=== PATIENT | female | born 1935 | race Hispanic/Latino ===

== ENCOUNTER 2017-08-13 20:03 | Inpatient (IN) | payer MEDICARE, OTHER ==
--- NOTE | 2017-08-13 20:50 | C.PDOC ---
History Of Present Illness 82 year old female is brought to the ED by her daughter for evaluation of pain to the left hip and thigh. 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 Patient states she was not able to get up by herself and needed help from another person. Patient denies LOC, headache, head injury, nausea, vomit, dizziness, weakness, numbness. Time Seen by Provider: 08/13/17 20:43 Chief Complaint (Nursing): Lower Extremity Problem/Injury History Per: Patient History/Exam Limitations: no limitations Onset/Duration Of Symptoms: Hrs Current Symptoms Are (Timing): Still Present Recent travel outside of the [place]: No Additional History Per: Patient - Hip Description Of Injury: Fell, Lost Balance Currently Unable To: Bend Or Move Past Medical History Reviewed: Historical Data, Nursing Documentation, Vital Signs Vital Signs: Last Vital Signs Temp 98.8 F 08/13/17 20:22 Pulse 74 08/13/17 20:22 Resp 20 08/13/17 20:22 BP 137/78 08/13/17 20:22 Pulse Ox 98 08/13/17 21:34 - Medical History PMH: Arthritis, HTN Surgical History: No Surg Hx Family History: States: Unknown Family Hx - Social History Hx Alcohol Use: No Hx Substance Use: No - Immunization History Hx Tetanus Toxoid Vaccination: No Hx Influenza Vaccination: Yes Hx Pneumococcal Vaccination: No Review Of Systems Constitutional: Negative for: Fever, Chills Cardiovascular: Negative for: Chest Pain Respiratory: Negative for: Shortness of Breath Gastrointestinal: Negative for: Nausea, Vomiting, Abdominal Pain Musculoskeletal: Positive for: Leg Pain Skin: Negative for: Rash Neurological: Negative for: Weakness, Numbness Physical Exam - Physical Exam Appears: Non-toxic, No Acute Distress Skin: Normal Color, Warm, Dry Head: Atraumatic, Normacephalic Eye(s): bilateral: Normal Inspection Oral Mucosa: Moist Neck: Normal ROM, Supple Chest: Symmetrical Cardiovascular: Rhythm Regular Respiratory: Normal Breath Sounds, No Rales, No Rhonchi, No Wheezing Back: No Paraspinal Tenderness Pelvic: Other (tenderness to left inguinal area) Extremity: No Normal ROM (unable to lift or move left hip or leg due to pain), Tenderness (left medial thigh and inner groin), No Calf Tenderness, Capillary Refill (< 2 seconds), No Deformity, No Swelling Pulses: Left Dorsalis Pedis: Normal, Right Dorsalis Pedis: Normal Neurological/Psych: Oriented x3, Normal Speech, Normal Sensation Gait: Unable To Assess ED Course And Treatment O2 Sat by Pulse Oximetry: 98 (ON RA) Pulse Ox Interpretation: Normal Medical Decision Making Medical Decision Making: Impression: left hip pain s.p fall Plan: * Tylenol 975 mg PO * Left hip X-Ray Xray viewed by me showing impacted femoral neck fracture left side. [id number]rera requested CT of hip, Matilda GARCIA [address] Nagel to discuss case and admission. Orders placed for labs, CT, IV meds Disposition - Disposition Disposition: HOSPITALIZED Disposition Time: 21:41 Condition: STABLE - POA Present On Arrival: Falls Or Trauma - Clinical Impression Clinical Impression: Fracture of neck of left femur - PA / RAIL SETTER / Resident Statement MD/DO has reviewed & agrees with the documentation as recorded. - Scribe Statement The provider has reviewed the documentation as recorded by the Scribe Elijah Andre All medical record entries made by the Scribe were at my direction and personally dictated by me. I have reviewed the chart and agree that the record accurately reflects my personal performance of the history, physical exam, medical decision making, and the department course for this patient. I have also personally directed, reviewed, and agree with the discharge instructions and disposition. Decision To Admit - Pt Status Changed To: Hospital Disposition Of: Inpatient - Admit Certification Admit to Inpatient:: After my assessment, the patient will require hospitalization for at least two midnights. This is because of the severity of symptoms shown, intensity of services needed, and/or the medical risk in this patient being treated as an outpatient. - InPatient: Physician Admission Certification: I certify that this patient requires 2 or more midnights of care for the following reason:: After my assessment, the patient will require hospitalization for at least two midnights. This is because of the severity of fracture, the patient is unable to walk will require surgical consult surgery, physical therapy and social intervention - . Bed Request Type: Regular Admitting Physician: Frank Nagel Patient Diagnosis: Fracture of neck of left femur
[2017-08-13 21:53] LABS: BASO % 0.3 % (0.0-2.0); EOS % 0.2 % (0.0-4.0); HEMOGLOBIN 12.3 g/dL (11.0-16.0); LYMPH # 0.9 K/uL (1.0-4.3); LYMPH % 7.8 % (20.0-40.0); MEAN CELL VOLUME 92.4 fL (81.0-99.0); MEAN CORPUSCULAR HEMOGLOBIN 31.4 pg (27.0-31.0); MEAN CORPUSCULAR HGB CONC 33.9 g/dL (33.0-37.0); MONO # 0.6 K/uL (0.0-0.8); MONO % 5.1 % (0.0-10.0); NEUT # 9.5 K/uL (1.8-7.0); NEUT % 86.6 % (50.0-75.0); PLATELET COUNT 178 K/uL (130-400); RBC 3.92 Mil/uL (3.80-5.20); RED CELL DISTRIBUTION WIDTH 13.4 % (11.5-14.5)
[2017-08-13 21:59] LABS: PROTHROMBIN TIME 11.2 SECONDS (9.7-12.2)
[2017-08-13 22:06] LABS: ALB/GLOB RATIO 1.4 (1.0-2.1); ALBUMIN 4.6 g/dL (3.5-5.0); ALT/SGPT 50 U/L (9-52); AST/SGOT 45 U/L (14-36); BLOOD UREA NITROGEN 18 mg/dL (7-17); CALCIUM 9.4 mg/dl (8.6-10.4); GFR AFRICAN-AMERICAN > 60; GFR NON-AFRICAN AMERICAN > 60
[2017-08-13 22:26] LABS: BANDS 2 % (0-2); EOSINOPHIL 1 % (0-4); LYMPHOCYTE 2 % (20-40); MONOCYTE 3 % (0-10); NEUTROPHIL 92 % (50-75); PLATELET ESTIMATE NORMAL (NORMAL); TOTAL CELLS COUNTED 100
[2017-08-13 22:31] LABS: URINE BACTERIA RARE (<OCC); URINE BILIRUBIN NEGATIVE (NEGATIVE); URINE BLOOD 2+ (NEGATIVE); URINE CLARITY Hazy (Clear); URINE COLOR Yellow (YELLOW); URINE GLUCOSE (UA) 1+ mg/dL (Normal); URINE LEUKOCYTE ESTERASE TRACE Leu/uL (Negative); URINE PROTEIN NEGATIVE (NEGATIVE); URINE UROBILINOGEN NORMAL mg/dL (0.2-1.0)
[2017-08-14] MEDS ORDERED: Morphine 4 MG/ML VIAL IV ONE (04:50)
--- NOTE | 2017-08-14 09:44 | CT ---
CT left hip History: Femoral neck fracture. Comparison: 08/13/2017 Technique: Multiple contiguous axial images were performed through the left hip without the use of intravenous contrast. Subsequently, sagittal and coronal reformatted images were obtained. This CT exam was performed using one or more of the following dose reduction techniques: Automated exposure control, adjustment of the mA and/or kV according to patient size, and/or use of iterative reconstruction technique. Findings: Acute fracture deformity of the left subcapital femoral neck. Femoral head appears located. Cortical irregularity at the level of the circumferential cortices. Degenerative changes at the pubic symphysis. At the level of the pubic symphysis posteriorly there is a rounded ossific density measuring 1.1 centimeters which may represent heterotopic bone. Impression: Acute fracture deformity of the left subcapital femoral neck at the head neck junction. These findings were preliminarily reported at 10:25 p.m. on 08/13/[address] Gurpreet Garber from [facility].
--- NOTE | 2017-08-14 10:32 | CP.PCM.PN ---
Subjective - Date & Time of Evaluation Date of Evaluation: 08/14/17 Time of Evaluation: 10:43 - Subjective Subjective: Patient examined discussed with PMd stable HTn,DM medically clear for surgery. Objective - Vital Signs/Intake and Output Vital Signs (last 24 hours): Temp Pulse Resp BP Pulse Ox 99.2 F 74 18 132/65 96 08/14/17 07:10 08/14/17 07:10 08/14/17 07:10 08/14/17 07:10 08/14/17 07:10 Intake and Output: 08/14/17 08/14/17 06:59 18:59 Intake Total 130 Output Total 1500 Balance -1370 - Medications Medications: Current Medications Potassium Chloride (Potassium Chloride 20 Meq/100 Ml) 20 meq in 100 mls @ 50 mls/hr IVPB ONCE ONE Stop: 08/14/17 11:07 Last Admin: 08/14/17 09:24 Dose: 50 mls/hr Pneumococcal Polyvalent Vaccine (Pneumovax 23 Vaccine) 0.5 ml IM .ONCE ONE Stop: 08/16/17 14:01 - Labs Labs: 08/13/17 21:46 08/13/17 21:46 PT 11.2 SECONDS (9.7-12.2) 08/13/17 21:46 INR 1.0 08/13/17 21:46 APTT 28 SECONDS (21-34) 08/13/17 21:46
--- NOTE | 2017-08-14 12:06 | RAD ---
Chest x-ray single frontal view History: Preoperative evaluation. Comparison: None available. Findings: Biapical pleural thickening with upper lobe granulomatous changes. Diffuse increased interstitial markings. Patchy increased markings at the left lung base. Enlarged ectatic aorta. Mild cardiomegaly. Degenerative changes spine and shoulders. Impression: Biapical pleural thickening with upper lobe granulomatous changes. Diffuse increased interstitial markings. Patchy increased markings at the left lung base. Enlarged ectatic aorta. Mild cardiomegaly.
--- NOTE | 2017-08-14 12:56 | RAD ---
PROCEDURE: Left Hip X-ray Radiographs. HISTORY: PAIN S.P FALL COMPARISON: None. FINDINGS: BONES: The pelvic ring is intact. There is diffuse bone demineralization. There is an acute nondisplaced mildly impacted left femoral subcapital fracture JOINTS: Normal. SOFT TISSUES: Normal. OTHER FINDINGS: None. IMPRESSION: Acute nondisplaced mildly impacted left femoral subcapital fracture. Important findings were discussed with the PA on 08/14/2017 at 12:54 p.m.. At this time the patient was already admitted with known left femoral fracture.
[2017-08-14] MEDS ORDERED: ceFAZolin IV 1 gm in Dextrose 2 GM/100 ML BAG IVPB ONE (13:03)
[2017-08-14] MEDS ORDERED: Etomidate 20 mg/10ml Inj IV ONE (13:14)
[2017-08-14] MEDS ORDERED: Succinylcholine Chloride 20 mg/ml Syr (5 ml) IV ONE (13:14)
--- NOTE | 2017-08-14 13:16 | CP.PCM.PN ---
Subjective - Date & Time of Evaluation Date of Evaluation: 08/14/17 Time of Evaluation: 09:45 - Subjective Subjective: PGY 3 Med Note- Dr. Nagel's service CC: hip pain 82 year old female with past medical history significant for HTN, diabetes and arthritis presents after falling while at work yesterday. 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 One day prior, the son of a customer accidentally fell onto the patient whereby she lost her footing and fell. She denies hitting her head. Patient states that she was in pain immediately afterwards requiring assistance. Patient admits to discomfort with movement of the affected left hip. Patient currently denies subjective fevers or chills, chest pain, headaches, loss of consciousness, palpitations, nausea, vomiting, diarrhea or constipation at this time. PMHx as stated above PSHX- denies Fam Hx- Patient denies Medications- Metformin, Amlodipine, ASA 81 mg, allergy medication Social- tobacco, alcohol or drug use Allergies-denies PMD- Dr. Farheen Nagel Objective - Vital Signs/Intake and Output Vital Signs (last 24 hours): Temp Pulse Resp BP Pulse Ox 99.2 F 74 18 132/65 96 08/14/17 07:10 08/14/17 07:10 08/14/17 07:10 08/14/17 07:10 08/14/17 07:10 Intake and Output: 08/14/17 08/14/17 06:59 18:59 Intake Total 130 Output Total 1500 300 Balance -1370 -300 - Medications Medications: Current Medications Pneumococcal Polyvalent Vaccine (Pneumovax 23 Vaccine) 0.5 ml IM .ONCE ONE Stop: 08/16/17 14:01 - Labs Labs: 08/13/17 21:46 08/13/17 21:46 PT 11.2 SECONDS (9.7-12.2) 08/13/17 21:46 INR 1.0 08/13/17 21:46 APTT 28 SECONDS (21-34) 08/13/17 21:46 - Constitutional Appears: Non-toxic, No Acute Distress - Head Exam Head Exam: ATRAUMATIC, NORMAL INSPECTION - Eye Exam Eye Exam: EOMI, Normal appearance - ENT Exam ENT Exam: Mucous Membranes Moist - Neck Exam Neck Exam: Full ROM - Respiratory Exam Respiratory Exam: NORMAL BREATHING PATTERN - Cardiovascular Exam Cardiovascular Exam: +S1, +S2, Murmur (systolic) - GI/Abdominal Exam GI & Abdominal Exam: Soft - Exam Exam: NORMAL INSPECTION - Extremities Exam Extremities Exam: Normal Capillary Refill, Tenderness (tender hip). absent: Full ROM (decreased range of motion of left hip), Pedal Edema - Neurological Exam Neurological Exam: Alert, Awake - Psychiatric Exam Psychiatric exam: Normal Affect, Normal Mood - Skin Skin Exam: Normal Color, Warm Assessment and Plan (1) Fracture of neck of left femur Assessment & Plan: XRAY and CT imaging confirms fracture of the neck of the left femur. Some degenerative changes noted. Refer to complete report. CXR- Biapical pleural thickening with upper lobe granulomatous changes. Diffuse interstitial markings. Refer to complete report. EKG- sinus rhythm, pr prolongation, questionable bundle branch changes. Orthopedic Surgeon Dr. Frederick Chadwick consulted- For the OR today. Patient with no otherwise known cardiac history except HTN and DM. Deemed medically clear by covering attending physician after speaking with patient's primary medical physician. PT/OT eval Status: Acute (2) HTN (hypertension) Assessment & Plan: Norvasc 5 mg PO daily Appropriate pain control Monitor Status: Acute (3) Diabetes mellitus Assessment & Plan: Accuchecks ISS Last Hgb A1c was 6.7 per primary Status: Acute (4) Hypokalemia Assessment & Plan: Repleted Monitor Status: Acute (5) Prophylactic measure Assessment & Plan: GI prophylaxis not indicated Incentive spirometry Lovenox following surgery per ortho recommendations Status: Acute
[2017-08-14] MEDS ORDERED: Rocuronium 10 mg/ml (5 ml) ONE (13:29)
[2017-08-14] MEDS ORDERED: Neostigmine Methylsulfate 3mg/3ml Syringe IV ONE (14:19)
--- NOTE | 2017-08-14 15:45 | PCM.SURG1 ---
<Grecia You - Last Filed: 08/14/17 15:42> Surgeon's Initial Post Op Note - Surgeon's Notes Surgeon: Dr. Herrera Roller Stainer: Dr. Марина Pierre Type of Anesthesia: General Endo Anesthesia Administered By: Dr. Cash Pre-Operative Diagnosis: Left hip fracture Operative Findings: Internal fixation Post-Operative Diagnosis: same Operation Performed: Left hip open reduction and internal fixation Specimen/Specimens Removed: none Estimated Blood Loss: EBL {In ML}: 15 Blood Products Given: N/A Drains Used: No Drains Post-Op Condition: Good Date of Surgery/Procedure: 08/14/17 Time of Surgery/Procedure: 14:00 <Nelida Herrera - Last Filed: 08/17/17 12:19> Surgeon's Initial Post Op Note - Surgeon's Notes Pre-Operative Diagnosis: Left hip displaced impacted subcapital femoral neck fracture Operative Findings: Left hip displaced impacted subcapital femoral neck fracture Post-Operative Diagnosis: Left hip displaced impacted subcapital femoral neck fracture Operation Performed: Left hip femoral neck fracture closed reduction and internal fixation with 3 screws Specimen/Specimens Removed: specimen= none. complications= none. implants= Synthes 7.3mm screws x3 (85mm fully threaded - inferior, 80mm partially threaded - superior ant/superior post lengths) and washers
[2017-08-14] MEDS ORDERED: HYDROmorphone 0.5 mg/0.5 ml ISec IVP PRN (15:46)
[2017-08-14] MEDS ORDERED: HYDROmorphone 0.5 mg/0.5 ml ISec ONE (15:46)
[2017-08-14] MEDS ORDERED: Lactated Ringer's 1,000 ML IV ONE (16:30)
--- NOTE | 2017-08-14 17:49 | RAD ---
PROCEDURE: Intraoperative Fluoroscopy. HISTORY: LEFT HIP FX FINDINGS: Fluoroscopic assistance was provided for open reduction internal fixation of a left hip fracture. Please refer to the operative report from SAVANNA Win DR, MD.
[2017-08-14] MEDS: Oxycodone/Acetaminophen 5/325 mg Tab PO PRN ×2 (17:50→21:52)
[2017-08-14] MEDS: CEFAZOLIN IVPB SCH (21:51)
[2017-08-14] MEDS: SODIUM CHLORIDE 0.9% IVPB SCH (21:51)
[2017-08-15] MEDS: SODIUM CHLORIDE 0.9% IVPB SCH (05:24)
[2017-08-15] MEDS: CEFAZOLIN IVPB SCH (05:24)
[2017-08-15 06:41] LABS: BASO % 0.6 % (0.0-2.0); EOS # 0.1 K/uL (0.0-0.7); EOS % 1.6 % (0.0-4.0); LYMPH # 1.5 K/uL (1.0-4.3); LYMPH % 19.1 % (20.0-40.0); MEAN CELL VOLUME 93.7 fL (81.0-99.0); MEAN CORPUSCULAR HEMOGLOBIN 31.9 pg (27.0-31.0); MONO # 0.5 K/uL (0.0-0.8); NEUT # 5.6 K/uL (1.8-7.0); NEUT % 72.7 % (50.0-75.0); RBC 2.99 Mil/uL (3.80-5.20); RED CELL DISTRIBUTION WIDTH 13.8 % (11.5-14.5); WHITE BLOOD COUNT 7.7 K/uL (4.8-10.8)
[2017-08-15 06:56] LABS: HEMOGLOBIN 9.5 g/dL (11.0-16.0)
[2017-08-15 07:29] LABS: ALB/GLOB RATIO 1.2 (1.0-2.1); ALT/SGPT 37 U/L (9-52); AST/SGOT 33 U/L (14-36); BLOOD UREA NITROGEN 9 mg/dL (7-17); CALCIUM 7.9 mg/dl (8.6-10.4); GFR AFRICAN-AMERICAN > 60; GFR NON-AFRICAN AMERICAN > 60
--- NOTE | 2017-08-15 07:34 | CP.PCM.PN ---
Subjective - Date & Time of Evaluation Date of Evaluation: 08/15/17 Time of Evaluation: 08:00 - Subjective Subjective: PGY 3 Med Note- Dr. Nagel's service Patient was seen and examined at bedside this morning. She is s/p Left hip open reduction and internal fixation. Pain is controlled with medications. Had mild fever overnight. Tolerating diet. No flatus or bowel movement yet. She is using her incentive spirometer. No new complaints at this time. Objective - Vital Signs/Intake and Output Vital Signs (last 24 hours): Temp Pulse Resp BP Pulse Ox 100.2 F H 78 20 103/60 95 08/15/17 04:15 08/15/17 04:15 08/15/17 04:15 08/15/17 04:15 08/15/17 04:20 Intake and Output: 08/15/17 08/15/17 06:59 18:59 Intake Total 330 Output Total 850 Balance -520 - Medications Medications: Current Medications Acetaminophen (Tylenol 325mg Tab) 650 mg PO Q6 PRN PRN Reason: Pain, Mild (1-3) Last Admin: 08/15/17 00:39 Dose: 650 mg Amlodipine Besylate (Norvasc) 5 mg PO DAILY [facility] Last Admin: 08/14/17 18:02 Dose: 5 mg Enoxaparin Sodium (Lovenox) 40 mg SC DAILY [facility] Cefazolin Sodium 1 mg/ Sodium (Chloride) 100 mls @ 100 mls/hr IVPB Q8H [facility] PRN Reason: Protocol Last Admin: 08/15/17 05:24 Dose: 100 mls/hr Oxycodone/Acetaminophen (Percocet 5/325 Mg Tab) 1 tab PO Q4H PRN PRN Reason: Pain, moderate (4-7) Stop: 08/17/17 16:09 Oxycodone/Acetaminophen (Percocet 5/325 Mg Tab) 2 tab PO Q4H PRN PRN Reason: Pain, severe (8-10) Stop: 08/17/17 16:09 Last Admin: 08/14/17 21:52 Dose: 2 tab Pneumococcal Polyvalent Vaccine (Pneumovax 23 Vaccine) 0.5 ml IM .ONCE ONE Stop: 08/16/17 14:01 - Labs Labs: 08/15/17 06:34 08/15/17 06:34 PT 11.2 SECONDS (9.7-12.2) 08/13/17 21:46 INR 1.0 08/13/17 21:46 APTT 28 SECONDS (21-34) 08/13/17 21:46 - Constitutional Appears: Non-toxic, No Acute Distress - Head Exam Head Exam: ATRAUMATIC, NORMAL INSPECTION - Eye Exam Eye Exam: EOMI - ENT Exam ENT Exam: Mucous Membranes Moist - Neck Exam Neck Exam: Full ROM - Respiratory Exam Respiratory Exam: Clear to Ausculation Bilateral, NORMAL BREATHING PATTERN. absent: Respiratory Distress - Cardiovascular Exam Cardiovascular Exam: REGULAR RHYTHM, +S1, +S2, Murmur - GI/Abdominal Exam GI & Abdominal Exam: Soft, Normal Bowel Sounds. absent: Distended, Firm, Guarding, Tenderness - Extremities Exam Extremities Exam: Normal Inspection Additional comments: Bandages in place over hip/leg. Patient is able to move toes, warm to touch - Back Exam Back Exam: NORMAL INSPECTION - Neurological Exam Neurological Exam: Alert, Awake, Oriented x3 - Psychiatric Exam Psychiatric exam: Normal Affect, Normal Mood Assessment and Plan - Assessment and Plan (Free Text) Assessment: Fracture of neck of left femur s/p Left hip open reduction and internal fixation POD #1 (surgery on 08/14/17) XRAY and CT imaging confirms fracture of the neck of the left femur. Some degenerative changes noted. Refer to complete report. CXR- Biapical pleural thickening with upper lobe granulomatous changes. Diffuse interstitial markings. Refer to complete report. EKG- sinus rhythm, pr prolongation, questionable bundle branch changes. Orthopedic Surgeon Dr. Frederick Chadwick consulted- For the OR today. Patient with no otherwise known cardiac history except HTN and DM. Deemed medically clear by covering attending physician after speaking with patient's primary medical physician. PT/OT eval Cefazolin 1mg IVPB Q8 hours Percocet 5/325 1 tab PO Q4 hours prn pain (2 tabs prn severe pain) Mild fevers overnight No BM/flatus yet Incentive spirometer Hgb post surgery 9.5 Ferrous Sulfat 325mg PO daily HTN (hypertension) Norvasc 5 mg PO daily - am dose held due to BP being on lower side Given 500mls of NS Appropriate pain control Monitor Diabetes mellitus Accuchecks ISS Last Hgb A1c was 6.7 per primary Hypokalemia K 3.2, Mg 1.6 Repleted Monitor Prophylactic measure GI prophylaxis not indicated Incentive spirometry Lovenox 40mg SC daily Grey discontinued - will monitor for urine output Out of bed to chair PT eval Dispo -> pending rehab authorization/placement and clearance from orthopedics. Patient would like to go to [facility] as she has as family member that works there All orders and management per Dr. Robe Rabago DO PGY3
[2017-08-15 07:40] LABS: ALBUMIN 3.2 g/dL (3.5-5.0)
[2017-08-15] MEDS ORDERED: Potassium Chloride 20 mEq ER Tab PO STA (07:48)
[2017-08-15] MEDS ORDERED: Magnesium Sulfate 1 gm in D5W 1 GM/100 ML BAG IVPB SCH (08:00)
[2017-08-15] MEDS ORDERED: Sodium Chloride 0.9% 500 ML IV ONE (09:01)
--- NOTE | 2017-08-15 09:39 | HP ---
HISTORY OF PRESENT ILLNESS: This is an 82-year-old female admitted to the hospital with chief complaint of fall. The patient was found to have hip fracture, arthritis. Patient has hypertension, diabetes. . The patient does not smoke or drink. PHYSICAL EXAMINATION GENERAL: The patient is a very pleasant elderly female. Awake, alert, and oriented. VITAL SIGNS: Temperature 98, pulse 90. HEENT: Within normal limits. NECK: Supple. CHEST: Symmetrical. HEART: Regular. ABDOMEN: Soft. EXTREMITIES: No edema ____ IMPRESSION: The patient suffered from hip fracture, hypertension stable, diabetes stable. The patient . Frank Nagel MD
[2017-08-15] MEDS ORDERED: Potassium Chloride 20 mEq ER Tab PO ONE (10:00)
[2017-08-15] MEDS: Enoxaparin 40 mg Syringe SC SCH (10:32)
[2017-08-15] MEDS: Oxycodone/Acetaminophen 5/325 mg Tab PO PRN ×3 (11:18→20:38)
[2017-08-15] MEDS: Sodium Chloride 0.9% 1,000 ML IV SCH ×2 (12:35→20:34)
[2017-08-15] MEDS: ceFAZolin 1 GM in Sodium Chloride 0.9% 100 ML IVPB SCH ×2 (12:35→20:40)
--- NOTE | 2017-08-15 15:26 | CP.PCM.PN ---
Subjective - Date & Time of Evaluation Date of Evaluation: 08/15/17 Time of Evaluation: 15:24 - Subjective Subjective: Patient states pain is controlled. Denies CP/SOB?dizziness. She says her BP went down during PT so she did not get out of bed, but denies dizziness even at that time. Objective - Vital Signs/Intake and Output Vital Signs (last 24 hours): Temp Pulse Resp BP Pulse Ox 98.9 F 78 20 106/69 95 08/15/17 10:31 08/15/17 11:15 08/15/17 11:15 08/15/17 11:15 08/15/17 11:15 Intake and Output: 08/15/17 08/15/17 06:59 18:59 Intake Total 330 Output Total 850 Balance -520 - Medications Medications: Current Medications Acetaminophen (Tylenol 325mg Tab) 650 mg PO Q6 PRN PRN Reason: Pain, Mild (1-3) Last Admin: 08/15/17 00:39 Dose: 650 mg Amlodipine Besylate (Norvasc) 5 mg PO DAILY [facility] Last Admin: 08/15/17 09:30 Dose: Not Given Enoxaparin Sodium (Lovenox) 40 mg SC DAILY [facility] Last Admin: 08/15/17 10:32 Dose: 40 mg Ferrous Sulfate (Feosol) 325 mg PO DAILY [facility] Last Admin: 08/15/17 11:18 Dose: 325 mg Cefazolin Sodium 1 gm/ Sodium (Chloride) 100 mls @ 200 mls/hr IVPB Q8H [facility] PRN Reason: Protocol Stop: 08/16/17 05:29 Last Admin: 08/15/17 12:35 Dose: 200 mls/hr Sodium Chloride (Sodium Chloride 0.9%) 1,000 mls @ 75 mls/hr IV .[id number] [facility] Last Admin: 08/15/17 12:35 Dose: 75 mls/hr Oxycodone/Acetaminophen (Percocet 5/325 Mg Tab) 1 tab PO Q4H PRN PRN Reason: Pain, moderate (4-7) Stop: 08/17/17 16:09 Last Admin: 08/15/17 11:18 Dose: 1 tab Oxycodone/Acetaminophen (Percocet 5/325 Mg Tab) 2 tab PO Q4H PRN PRN Reason: Pain, severe (8-10) Stop: 08/17/17 16:09 Last Admin: 08/14/17 21:52 Dose: 2 tab Pneumococcal Polyvalent Vaccine (Pneumovax 23 Vaccine) 0.5 ml IM .ONCE ONE Stop: 08/16/17 14:01 - Labs Labs: 08/15/17 06:34 08/15/17 06:34 PT 11.2 SECONDS (9.7-12.2) 08/13/17 21:46 INR 1.0 08/13/17 21:46 APTT 28 SECONDS (21-34) 08/13/17 21:46 - Extremities Exam Additional comments: Left hip: incision intact, thigh mld swelling, +ROM ankle/toes, sensation intact , +DP/PT pulses, no drainage noted Assessment and Plan (1) Fracture of neck of left femur Assessment & Plan: POD# s/p left hip pinning PT/oT IVF labs in am check Vit D d/c planning to [facility] VTE proph d/w Dr. Duenas, agrees with above Status: Acute
--- NOTE | 2017-08-15 15:38 | RAD ---
Chest x-ray single frontal view History: Desaturation. Comparison: 08/13/2017 Findings: Biapical pleural thickening with upper lobe granulomatous changes. Blunted left costophrenic angle suggestive for pleural thickening and/or small pleural effusion. Consolidative changes at the left lung base. Right hilar prominence. Enlarged ectatic aorta. Calcification at the aortic knob. Cardiomegaly. Degenerative changes in the spine and shoulders. Impression: Biapical pleural thickening with upper lobe granulomatous changes. Blunted left costophrenic angle suggestive for pleural thickening and/or small pleural effusion. Consolidative changes at the left lung base. Right hilar prominence. Enlarged ectatic aorta. Calcification at the aortic knob. Cardiomegaly.
[2017-08-16] MEDS: Sodium Chloride 0.9% 1,000 ML IV SCH ×3 (01:50→22:54)
[2017-08-16] MEDS: ceFAZolin 1 GM in Sodium Chloride 0.9% 100 ML IVPB SCH (05:43)
[2017-08-16 06:42] LABS: BASO % 0.4 % (0.0-2.0); EOS # 0.1 K/uL (0.0-0.7); EOS % 1.5 % (0.0-4.0); HEMOGLOBIN 9.2 g/dL (11.0-16.0); LYMPH # 1.3 K/uL (1.0-4.3); MEAN CELL VOLUME 93.4 fL (81.0-99.0); MEAN CORPUSCULAR HEMOGLOBIN 31.8 pg (27.0-31.0); MEAN PLATELET VOLUME 7.8 fL (7.2-11.7); MONO # 0.5 K/uL (0.0-0.8); MONO % 7.7 % (0.0-10.0); NEUT # 4.5 K/uL (1.8-7.0); NEUT % 70.4 % (50.0-75.0); RBC 2.9 Mil/uL (3.80-5.20); RED CELL DISTRIBUTION WIDTH 13.7 % (11.5-14.5); WHITE BLOOD COUNT 6.4 K/uL (4.8-10.8)
[2017-08-16 06:59] LABS: ALB/GLOB RATIO 1.1 (1.0-2.1); ALBUMIN 3.1 g/dL (3.5-5.0); ALT/SGPT 30 U/L (9-52); AST/SGOT 25 U/L (14-36); BLOOD UREA NITROGEN 6 mg/dL (7-17); CALCIUM 7.8 mg/dl (8.6-10.4); GFR AFRICAN-AMERICAN > 60; GFR NON-AFRICAN AMERICAN > 60
--- NOTE | 2017-08-16 07:17 | CP.PCM.PN ---
Subjective - Date & Time of Evaluation Date of Evaluation: 08/16/17 Time of Evaluation: 08:00 - Subjective Subjective: PGY 3 Med Note- Dr. Nagel's service Patient was seen and examined at bedside this morning. She is s/p Left hip open reduction and internal fixation POD #2. Pain is controlled with medications. Had mild fever overnight. Tolerating diet. Had BM and is urinating. She is using her incentive spirometer. No new complaints at this time. Was sitting out of bed to chair. Objective - Vital Signs/Intake and Output Vital Signs (last 24 hours): Temp Pulse Resp BP Pulse Ox 99.2 F 84 20 126/63 97 08/16/17 04:15 08/15/17 23:30 08/15/17 23:30 08/15/17 23:30 08/15/17 23:30 Intake and Output: 08/16/17 08/16/17 06:59 18:59 Intake Total 600 Output Total 100 Balance 500 - Medications Medications: Current Medications Acetaminophen (Tylenol 325mg Tab) 650 mg PO Q6 PRN PRN Reason: Pain, Mild (1-3) Last Admin: 08/16/17 00:09 Dose: 650 mg Amlodipine Besylate (Norvasc) 5 mg PO DAILY [facility] Last Admin: 08/15/17 09:30 Dose: Not Given Enoxaparin Sodium (Lovenox) 40 mg SC DAILY [facility] Last Admin: 08/15/17 10:32 Dose: 40 mg Ferrous Sulfate (Feosol) 325 mg PO DAILY [facility] Last Admin: 08/15/17 11:18 Dose: 325 mg Sodium Chloride (Sodium Chloride 0.9%) 1,000 mls @ 75 mls/hr IV .[id number] [facility] Last Admin: 08/16/17 01:50 Dose: Not Given Oxycodone/Acetaminophen (Percocet 5/325 Mg Tab) 1 tab PO Q4H PRN PRN Reason: Pain, moderate (4-7) Stop: 08/17/17 16:09 Last Admin: 08/15/17 11:18 Dose: 1 tab Oxycodone/Acetaminophen (Percocet 5/325 Mg Tab) 2 tab PO Q4H PRN PRN Reason: Pain, severe (8-10) Stop: 08/17/17 16:09 Last Admin: 08/15/17 20:38 Dose: 2 tab Pneumococcal Polyvalent Vaccine (Pneumovax 23 Vaccine) 0.5 ml IM .ONCE ONE Stop: 08/16/17 14:01 - Labs Labs: 08/16/17 06:34 08/16/17 06:34 PT 11.2 SECONDS (9.7-12.2) 08/13/17 21:46 INR 1.0 08/13/17 21:46 APTT 28 SECONDS (21-34) 08/13/17 21:46 - Constitutional Appears: Non-toxic, No Acute Distress - Head Exam Head Exam: ATRAUMATIC, NORMAL INSPECTION - Eye Exam Eye Exam: EOMI Pupil Exam: NORMAL ACCOMODATION - ENT Exam ENT Exam: Mucous Membranes Moist - Respiratory Exam Respiratory Exam: Clear to Ausculation Bilateral, Respiratory Distress - Cardiovascular Exam Cardiovascular Exam: REGULAR RHYTHM, +S1, +S2 - GI/Abdominal Exam GI & Abdominal Exam: Soft, Normal Bowel Sounds. absent: Distended, Firm, Guarding, Tenderness - Extremities Exam Extremities Exam: Normal Inspection Additional comments: Bandages in place over hip/leg. Patient is able to move toes, warm to touch - Back Exam Back Exam: NORMAL INSPECTION - Neurological Exam Neurological Exam: Alert, Awake, CN II-XII Intact, Oriented x3 - Psychiatric Exam Psychiatric exam: Normal Affect, Normal Mood Assessment and Plan - Assessment and Plan (Free Text) Assessment: Fracture of neck of left femur s/p Left hip open reduction and internal fixation POD #2 (surgery on 08/14/17) XRAY and CT imaging confirms fracture of the neck of the left femur. Some degenerative changes noted. Refer to complete report. CXR- Biapical pleural thickening with upper lobe granulomatous changes. Diffuse interstitial markings. Refer to complete report. EKG- sinus rhythm, pr prolongation, questionable bundle branch changes. Orthopedic Surgeon Dr. Frederick Chadwick consulted- For the OR today. Patient with no otherwise known cardiac history except HTN and DM. Deemed medically clear by covering attending physician after speaking with patient's primary medical physician. PT/OT eval Cefazolin 1mg IVPB Q8 hours Percocet 5/325 1 tab PO Q4 hours prn pain (2 tabs prn severe pain) Mild fevers overnight Incentive spirometer Hgb post surgery 9.5 Ferrous Sulfat 325mg PO daily Post Op fever Tmax 101.8 overnight Chest X ray - no evidence of pneumonia Had 3 doses of IV Ancef f/u UA, urine culture, blood culture HTN (hypertension) Norvasc 5 mg PO daily - am dose held due to BP being on lower side Given 500mls of NS Appropriate pain control Monitor Diabetes mellitus Accuchecks ISS Last Hgb A1c was 6.7 per primary hold home metformin dose Hypokalemia K 3.4, replaced Vitamin D deficiency Patient to take 2000 IU of Vit D daily otc Prophylactic measure GI prophylaxis not indicated Incentive spirometry Lovenox 40mg SC daily Out of bed to chair PT eval Dispo -> pending rehab authorization/placement and clearance from orthopedics. [place] [facility] she has as family member that works there All orders and management per Dr. Robe Rabago DO PGY3
[2017-08-16] MEDS ORDERED: Potassium Chloride 20 mEq ER Tab PO STA (07:19)
[2017-08-16] MEDS: Enoxaparin 40 mg Syringe SC SCH (09:10)
[2017-08-16] MEDS: Oxycodone/Acetaminophen 5/325 mg Tab PO PRN ×4 (09:15→22:57)
[2017-08-16] MEDS ORDERED: Pneumococcal 23-Valent Vaccine IM ONE ×2 (10:00→14:00)
[2017-08-16] MEDS: (Novolin R) Insulin Human Regular 100 units/ml vial SC SCH ×3 (12:43→21:28)
[2017-08-16 14:28] LABS: SQUAMOUS EPITHIAL 1 /hpf (0-5); URINE BILIRUBIN NEGATIVE (NEGATIVE); URINE BLOOD 2+ (NEGATIVE); URINE CLARITY Clear (Clear); URINE COLOR Yellow (YELLOW); URINE GLUCOSE (UA) 3+ mg/dL (Normal); URINE LEUKOCYTE ESTERASE 1+ Leu/uL (Negative); URINE PROTEIN NEGATIVE (NEGATIVE)
[2017-08-17] MEDS: Oxycodone/Acetaminophen 5/325 mg Tab PO PRN (03:12)
[2017-08-17] MEDS: Sodium Chloride 0.9% 1,000 ML IV SCH ×2 (05:06→09:20)
[2017-08-17 06:51] LABS: BASO % 0.4 % (0.0-2.0); EOS # 0.1 K/uL (0.0-0.7); EOS % 1.2 % (0.0-4.0); HEMOGLOBIN 8.5 g/dL (11.0-16.0); LYMPH # 1.3 K/uL (1.0-4.3); LYMPH % 21.8 % (20.0-40.0); MEAN CELL VOLUME 93.9 fL (81.0-99.0); MEAN CORPUSCULAR HEMOGLOBIN 31.4 pg (27.0-31.0); MEAN CORPUSCULAR HGB CONC 33.4 g/dL (33.0-37.0); MEAN PLATELET VOLUME 8.1 fL (7.2-11.7); MONO # 0.4 K/uL (0.0-0.8); MONO % 6.9 % (0.0-10.0); NEUT # 4.2 K/uL (1.8-7.0); NEUT % 69.7 % (50.0-75.0); RBC 2.7 Mil/uL (3.80-5.20); RED CELL DISTRIBUTION WIDTH 13.6 % (11.5-14.5)
[2017-08-17 07:19] LABS: ALB/GLOB RATIO 1.1 (1.0-2.1); ALBUMIN 2.9 g/dL (3.5-5.0); ALT/SGPT 27 U/L (9-52); AST/SGOT 23 U/L (14-36); BLOOD UREA NITROGEN 5 mg/dL (7-17); CALCIUM 7.7 mg/dl (8.6-10.4); GFR AFRICAN-AMERICAN > 60; GFR NON-AFRICAN AMERICAN > 60
[2017-08-17] MEDS: (Novolin R) Insulin Human Regular 100 units/ml vial SC SCH ×4 (08:17→21:13)
[2017-08-17] MEDS: Enoxaparin 40 mg Syringe SC SCH (09:16)
[2017-08-17] MEDS ORDERED: Potassium Chloride 20 mEq ER Tab PO SCH ×2 (12:45)
[2017-08-17] MEDS: Potassium Chloride 20 mEq ER Tab PO SCH (12:59)
[2017-08-17] MEDS: Ferric Sodium Gluconat Complex 62.5 mg/5 ml Vial IVPB SCH (12:59)
[2017-08-18] MEDS: Sodium Chloride 0.9% 1,000 ML IV SCH (02:28)
[2017-08-18] MEDS: (Novolin R) Insulin Human Regular 100 units/ml vial SC SCH ×4 (07:12→21:17)
[2017-08-18] MEDS: Potassium Chloride 20 mEq ER Tab PO SCH (09:49)
[2017-08-18] MEDS: Enoxaparin 40 mg Syringe SC SCH (09:49)
[2017-08-18] MEDS: Ferric Sodium Gluconat Complex 62.5 mg/5 ml Vial IVPB SCH (09:49)
[2017-08-19] MEDS: Sodium Chloride 0.9% 1,000 ML IV SCH (07:25)
[2017-08-19] MEDS: (Novolin R) Insulin Human Regular 100 units/ml vial SC SCH ×4 (08:15→22:57)
[2017-08-19 09:25] LABS: BASO % 0.8 % (0.0-2.0); EOS # 0.1 K/uL (0.0-0.7); EOS % 1.7 % (0.0-4.0); HEMOGLOBIN 9.9 g/dL (11.0-16.0); LYMPH % 19.6 % (20.0-40.0); MEAN CELL VOLUME 93.8 fL (81.0-99.0); MEAN CORPUSCULAR HEMOGLOBIN 32.2 pg (27.0-31.0); MEAN CORPUSCULAR HGB CONC 34.3 g/dL (33.0-37.0); MEAN PLATELET VOLUME 7.8 fL (7.2-11.7); MONO # 0.4 K/uL (0.0-0.8); MONO % 7.4 % (0.0-10.0); NEUT # 3.5 K/uL (1.8-7.0); NEUT % 70.5 % (50.0-75.0); NRBC % 0.1 % (0.0-2.0); RBC 3.06 Mil/uL (3.80-5.20); RED CELL DISTRIBUTION WIDTH 13.8 % (11.5-14.5)
[2017-08-19 09:36] LABS: ALB/GLOB RATIO 1.2 (1.0-2.1); ALBUMIN 3.7 g/dL (3.5-5.0); ALT/SGPT 38 U/L (9-52); AST/SGOT 40 U/L (14-36); BLOOD UREA NITROGEN 3 mg/dL (7-17); CALCIUM 8.7 mg/dl (8.6-10.4); GFR AFRICAN-AMERICAN > 60; GFR NON-AFRICAN AMERICAN > 60
[2017-08-19] MEDS: Potassium Chloride 20 mEq ER Tab PO SCH (10:30)
[2017-08-19] MEDS: Enoxaparin 40 mg Syringe SC SCH (10:32)
[2017-08-19] MEDS: Ferric Sodium Gluconat Complex 62.5 mg/5 ml Vial IVPB SCH (10:35)
[2017-08-19] MEDS ORDERED: Potassium Chloride 20 mEq ER Tab PO ONE (10:42)
--- NOTE | 2017-08-19 13:28 | CP.PCM.PN ---
Subjective - Date & Time of Evaluation Date of Evaluation: 08/19/17 Time of Evaluation: 13:28 - Subjective Subjective: Internal Medicine Progress Note - Dr Nagel Service Patient seen and examined at bedside. Per nursing no acute events overnight. Patient is doing well, complaining of right knee discomfort. Offers no other complaints. She is tolerating diet. Denies headaches, dizziness, cp, palpitations, sob, abdominal pain, urinary symptoms, changes in bowel habits. Objective - Vital Signs/Intake and Output Vital Signs (last 24 hours): Temp Pulse Resp BP Pulse Ox 98.4 F 72 20 154/77 H 96 08/19/17 07:35 08/19/17 07:35 08/19/17 07:35 08/19/17 07:35 08/19/17 07:35 - Medications Medications: Current Medications Acetaminophen (Tylenol 325mg Tab) 650 mg PO Q6 PRN PRN Reason: Pain, Mild (1-3) Last Admin: 08/19/17 12:06 Dose: 650 mg Amlodipine Besylate (Norvasc) 5 mg PO DAILY [facility] Last Admin: 08/19/17 10:31 Dose: 5 mg Docusate Sodium (Colace) 100 mg PO BID [facility] Last Admin: 08/19/17 10:30 Dose: 100 mg Enoxaparin Sodium (Lovenox) 40 mg SC DAILY [facility] Last Admin: 08/19/17 10:32 Dose: 40 mg Escitalopram Oxalate (Lexapro) 30 mg PO DAILY [facility] Ferric Sodium Gluconate Complex (Ferrlecit) 125 mg IVPB DAILY [facility] Stop: 08/20/17 12:46 Last Admin: 08/19/17 10:35 Dose: 125 mg Ceftriaxone Sodium 1 gm/ (Sodium Chloride) 100 mls @ 200 mls/hr IVPB Q24H [facility] PRN Reason: Protocol Last Admin: 08/18/17 16:30 Dose: 200 mls/hr Insulin Human Regular (Novolin R) 0 unit SC ACHS [facility] PRN Reason: Protocol Last Admin: 08/19/17 12:05 Dose: 3 units Potassium Chloride (K-Dur 20 Meq Er Tab) 20 meq PO DAILY [facility] Stop: 08/20/17 12:46 Last Admin: 08/19/17 10:30 Dose: 20 meq - Labs Labs: 08/19/17 09:18 08/19/17 09:18 PT 11.2 SECONDS (9.7-12.2) 08/13/17 21:46 INR 1.0 08/13/17 21:46 APTT 28 SECONDS (21-34) 08/13/17 21:46 - Constitutional Appears: Well, No Acute Distress - Head Exam Head Exam: ATRAUMATIC, NORMAL INSPECTION, NORMOCEPHALIC - Eye Exam Eye Exam: EOMI, Normal appearance Pupil Exam: NORMAL ACCOMODATION - ENT Exam ENT Exam: Mucous Membranes Moist - Neck Exam Neck Exam: Full ROM - Respiratory Exam Respiratory Exam: Clear to Ausculation Bilateral, NORMAL BREATHING PATTERN. absent: Rales, Rhonchi, Wheezes - Cardiovascular Exam Cardiovascular Exam: REGULAR RHYTHM, +S1, +S2 - GI/Abdominal Exam GI & Abdominal Exam: Soft, Normal Bowel Sounds. absent: Guarding, Rigid, Tenderness - Extremities Exam Extremities Exam: Joint Swelling, Normal Capillary Refill. absent: Calf Tenderness Additional comments: +pedal pulses bilaterally - Neurological Exam Neurological Exam: Alert, Awake, Normal Gait, Oriented x3 - Psychiatric Exam Psychiatric exam: Normal Affect, Normal Mood - Skin Skin Exam: Dry, Normal Color, Warm Assessment and Plan - Assessment and Plan (Free Text) Assessment: A/P: Patient is a 82 year old female with past medical history of Diabetes Mellitus, Vitamin D Deficiency, presented to the ED s/p fall and was found to have left femoral neck fracture Fracture of neck of left femur -s/p Left hip open reduction and internal fixation POD #5 (surgery on 08/14/17) -XRAY and CT imaging confirms fracture of the neck of the left femur. Some degenerative changes noted. Refer to complete report. -CXR- Biapical pleural thickening with upper lobe granulomatous changes. Diffuse interstitial markings. Refer to complete report. -EKG- sinus rhythm, pr prolongation, questionable bundle branch changes. -Orthopedic Surgeon Dr. Frederick Chadwick consulted- Patient with no otherwise known cardiac history except HTN and DM. Deemed medically clear by covering - attending physician after speaking with patient's primary medical physician. -Percocet 5/325 1 tab PO Q4 hours prn pain (2 tabs prn severe pain) -Incentive spirometer -PT/OT eval Acute blood loss anemia -Hgb 9.9 today -Continue Ferrous Gluconate 325mg daily Right knee pain -Lidoderm patch daily Urinary Tract Infection -UA + Leukocyte esterase, +WBCs -Continue Rocephin 1 gm daily HTN (hypertension) Norvasc 5 mg PO daily Appropriate pain control Monitor vitals Diabetes mellitus Accuchecks, ISS Last Hgb A1c was 6.7 per primary Hold home metformin dose Hypokalemia -Continue to monitor and replete as needed Vitamin D deficiency -Patient to take 2000 IU of Vit D daily otc GI/DVT Prophylactic measure GI prophylaxis not indicated Lovenox 40mg SC daily DISPO: Patient is awaiting authorization from [facility]) for subacute rehab. Patient to follow up with Dr Frederick chadwick in the office within 7-10 days phone number is ([phone]). Plan discussed with Dr Robe Payne DO PGY-2
--- NOTE | 2017-08-19 14:11 | CP.PCM.PN ---
Subjective - Date & Time of Evaluation Date of Evaluation: 08/19/17 Time of Evaluation: 14:09 - Subjective Subjective: Patient states her leg is feeling better. She says that her leg is much less swollen now. Denies CP/SOB/dizziness. Objective - Vital Signs/Intake and Output Vital Signs (last 24 hours): Temp Pulse Resp BP Pulse Ox 98.4 F 72 20 154/77 H 96 08/19/17 07:35 08/19/17 07:35 08/19/17 07:35 08/19/17 07:35 08/19/17 07:35 - Medications Medications: Current Medications Acetaminophen (Tylenol 325mg Tab) 650 mg PO Q6 PRN PRN Reason: Pain, Mild (1-3) Last Admin: 08/19/17 12:06 Dose: 650 mg Amlodipine Besylate (Norvasc) 5 mg PO DAILY [facility] Last Admin: 08/19/17 10:31 Dose: 5 mg Docusate Sodium (Colace) 100 mg PO BID [facility] Last Admin: 08/19/17 10:30 Dose: 100 mg Enoxaparin Sodium (Lovenox) 40 mg SC DAILY [facility] Last Admin: 08/19/17 10:32 Dose: 40 mg Ferric Sodium Gluconate Complex (Ferrlecit) 125 mg IVPB DAILY [facility] Stop: 08/20/17 12:46 Last Admin: 08/19/17 10:35 Dose: 125 mg Ceftriaxone Sodium 1 gm/ (Sodium Chloride) 100 mls @ 200 mls/hr IVPB Q24H [facility] PRN Reason: Protocol Last Admin: 08/18/17 16:30 Dose: 200 mls/hr Insulin Human Regular (Novolin R) 0 unit SC ACHS [facility] PRN Reason: Protocol Last Admin: 08/19/17 12:05 Dose: 3 units Potassium Chloride (K-Dur 20 Meq Er Tab) 20 meq PO DAILY [facility] Stop: 08/20/17 12:46 Last Admin: 08/19/17 10:30 Dose: 20 meq - Labs Labs: 08/19/17 09:18 08/19/17 09:18 PT 11.2 SECONDS (9.7-12.2) 08/13/17 21:46 INR 1.0 08/13/17 21:46 APTT 28 SECONDS (21-34) 08/13/17 21:46 - Extremities Exam Additional comments: Left hip: dressing changed. incision intact, dry. +ROM ankel/toes, sensationintact +DP/PT pulses, calves soft NT neg homans Assessment and Plan (1) Fracture of neck of left femur Assessment & Plan: POD#5 s/p left hip pinning ortho stable VTE proph d/c planning f/u in office 7-10 days call for appointment [phone] d/w Dr. Mack=Farrukh, agrees with above Status: Acute
[2017-08-19] MEDS: Lidocaine 5% Patch TD SCH (16:19)
--- NOTE | 2017-08-20 06:36 | CARD ---
APPROVED REPORT EKG Measurement Heart [id number] <Conclusion> Sinus rhythm with 1st degree AV block Nonspecific intraventricular block T wave abnormality, consider anterior ischemia Abnormal ECG
[2017-08-20 07:39] LABS: BASO % 0.6 % (0.0-2.0); EOS # 0.1 K/uL (0.0-0.7); EOS % 2.2 % (0.0-4.0); HEMOGLOBIN 9.7 g/dL (11.0-16.0); LYMPH # 1.5 K/uL (1.0-4.3); LYMPH % 23.8 % (20.0-40.0); MEAN CELL VOLUME 94.1 fL (81.0-99.0); MEAN CORPUSCULAR HEMOGLOBIN 31.7 pg (27.0-31.0); MEAN CORPUSCULAR HGB CONC 33.7 g/dL (33.0-37.0); MEAN PLATELET VOLUME 8.1 fL (7.2-11.7); MONO # 0.6 K/uL (0.0-0.8); MONO % 9.4 % (0.0-10.0); NEUT # 3.9 K/uL (1.8-7.0); NRBC % 0.1 % (0.0-2.0); RBC 3.06 Mil/uL (3.80-5.20); RED CELL DISTRIBUTION WIDTH 13.9 % (11.5-14.5); WHITE BLOOD COUNT 6.1 K/uL (4.8-10.8)
[2017-08-20 08:18] LABS: ALB/GLOB RATIO 1.2 (1.0-2.1); ALBUMIN 3.4 g/dL (3.5-5.0); ALT/SGPT 35 U/L (9-52); AST/SGOT 36 U/L (14-36); BLOOD UREA NITROGEN 4 mg/dL (7-17); CALCIUM 8.6 mg/dl (8.6-10.4); GFR AFRICAN-AMERICAN > 60; GFR NON-AFRICAN AMERICAN > 60
[2017-08-20] MEDS: (Novolin R) Insulin Human Regular 100 units/ml vial SC SCH ×3 (08:30→22:45)
[2017-08-20] MEDS ORDERED: Potassium Chloride 20 mEq ER Tab PO ONE (08:38)
--- NOTE | 2017-08-20 09:02 | CP.PCM.PN ---
Subjective - Date & Time of Evaluation Date of Evaluation: 08/20/17 Time of Evaluation: 09:01 - Subjective Subjective: Internal Medicine Progress Note - Dr Nagel Service Patient seen and examined at bedside. Per nursing no acute events overnight. Patient is doing well, ambulating with physical therapy. Offers no complaints at this time. Awaiting placement for [facility]. Denies headaches, dizziness, cp, palpitations, sob, abdominal pain, urinary symptoms, changes in bowel habits. Objective - Vital Signs/Intake and Output Vital Signs (last 24 hours): Temp Pulse Resp BP Pulse Ox 98.3 F 66 20 154/70 H 95 08/20/17 08:39 08/20/17 08:39 08/20/17 08:39 08/20/17 08:39 08/20/17 08:39 - Medications Medications: Current Medications Acetaminophen (Tylenol 325mg Tab) 650 mg PO Q6 PRN PRN Reason: Pain, Mild (1-3) Last Admin: 08/19/17 12:06 Dose: 650 mg Amlodipine Besylate (Norvasc) 5 mg PO DAILY [facility] Last Admin: 08/19/17 10:31 Dose: 5 mg Docusate Sodium (Colace) 100 mg PO BID [facility] Last Admin: 08/19/17 18:17 Dose: 100 mg Enoxaparin Sodium (Lovenox) 40 mg SC DAILY [facility] Last Admin: 08/19/17 10:32 Dose: 40 mg Ferric Sodium Gluconate Complex (Ferrlecit) 125 mg IVPB DAILY [facility] Stop: 08/20/17 12:46 Last Admin: 08/19/17 10:35 Dose: 125 mg Ceftriaxone Sodium 1 gm/ (Sodium Chloride) 100 mls @ 200 mls/hr IVPB Q24H [facility] PRN Reason: Protocol Last Admin: 08/19/17 16:19 Dose: 200 mls/hr Insulin Human Regular (Novolin R) 0 unit SC ACHS [facility] PRN Reason: Protocol Last Admin: 08/19/17 22:57 Dose: Not Given Lidocaine (Lidoderm) 1 ea TD Q24H [facility] Last Admin: 08/19/17 16:19 Dose: 1 ea Potassium Chloride (K-Dur 20 Meq Er Tab) 20 meq PO DAILY [facility] Stop: 08/20/17 12:46 Last Admin: 08/19/17 10:30 Dose: 20 meq - Labs Labs: 08/20/17 07:26 08/20/17 07:26 PT 11.2 SECONDS (9.7-12.2) 08/13/17 21:46 INR 1.0 08/13/17 21:46 APTT 28 SECONDS (21-34) 08/13/17 21:46 - Additional Findings Additional findings: - Constitutional Appears: Well, No Acute Distress - Head Exam Head Exam: ATRAUMATIC, NORMAL INSPECTION, NORMOCEPHALIC - Eye Exam Eye Exam: EOMI, Normal appearance Pupil Exam: NORMAL ACCOMODATION - ENT Exam ENT Exam: Mucous Membranes Moist - Neck Exam Neck Exam: Full ROM - Respiratory Exam Respiratory Exam: Clear to Ausculation Bilateral, NORMAL BREATHING PATTERN. absent: Rales, Rhonchi, Wheezes - Cardiovascular Exam Cardiovascular Exam: REGULAR RHYTHM, +S1, +S2 - GI/Abdominal Exam GI & Abdominal Exam: Soft, Normal Bowel Sounds. absent: Guarding, Rigid, Tenderness - Extremities Exam Extremities Exam: Joint Swelling, Normal Capillary Refill. absent: Calf Tenderness Additional comments: +pedal pulses bilaterally - Neurological Exam Neurological Exam: Alert, Awake, Normal Gait, Oriented x3 - Psychiatric Exam Psychiatric exam: Normal Affect, Normal Mood - Skin Skin Exam: Dry, Normal Color, Warm Assessment and Plan - Assessment and Plan (Free Text) Assessment: A/P: Patient is a 82 year old female with past medical history of Diabetes Mellitus, Vitamin D Deficiency, presented to the ED s/p fall and was found to have left femoral neck fracture Fracture of neck of left femur -s/p Left hip open reduction and internal fixation POD #5 (surgery on 08/14/17) -XRAY and CT imaging confirms fracture of the neck of the left femur. Some degenerative changes noted. Refer to complete report. -CXR- Biapical pleural thickening with upper lobe granulomatous changes. Diffuse interstitial markings. Refer to complete report. -EKG- sinus rhythm, pr prolongation, questionable bundle branch changes. -Orthopedic Surgeon Dr. Frederick Chadwick consulted- Patient with no otherwise known cardiac history except HTN and DM. Deemed medically clear by covering - attending physician after speaking with patient's primary medical physician. -Percocet 5/325 1 tab PO Q4 hours prn pain (2 tabs prn severe pain) -Incentive spirometer -PT/OT eval Acute blood loss anemia -Hgb 9.7 today -Continue Ferrous Gluconate 325mg daily Right knee pain -Lidoderm patch daily Urinary Tract Infection -UA + Leukocyte esterase, +WBCs -Urine culture growing <10,000 CFU -Continue Rocephin 1 gm daily (completed 5 days, will discontinue) HTN (hypertension) Norvasc 5 mg PO daily Appropriate pain control Monitor vitals Diabetes mellitus Accuchecks, ISS Last Hgb A1c was 6.7 per primary Hold home metformin dose Hypokalemia -Potassium 3.4 today -Continue to monitor and replete as needed Vitamin D deficiency -Patient to take 2000 IU of Vit D daily otc Anxiety/Depression -Lexapro 5mg PO daily GI/DVT Prophylactic measure GI prophylaxis not indicated Lovenox 40mg SC daily DISPO: Patient is awaiting authorization from [facility] ([facility]) for subacute rehab. Patient to follow up with Dr Frederick chadwick in the office within 7-10 days phone number is ([phone]). Plan discussed with Dr Robe Payne DO PGY-2
[2017-08-20] MEDS: Ferric Sodium Gluconat Complex 62.5 mg/5 ml Vial IVPB SCH (10:09)
[2017-08-20] MEDS: Potassium Chloride 20 mEq ER Tab PO SCH (10:12)
[2017-08-20] MEDS: Enoxaparin 40 mg Syringe SC SCH (10:12)
[2017-08-20] MEDS: Lidocaine 5% Patch TD SCH (18:05)
[2017-08-21] MEDS: (Novolin R) Insulin Human Regular 100 units/ml vial SC SCH ×4 (07:42→21:12)
[2017-08-21] MEDS: Enoxaparin 40 mg Syringe SC SCH (10:45)
[2017-08-21] MEDS: Lidocaine 5% Patch TD SCH (17:35)
[2017-08-22 07:49] LABS: BASO % 0.4 % (0.0-2.0); EOS # 0.1 K/uL (0.0-0.7); EOS % 1.4 % (0.0-4.0); HEMOGLOBIN 10.2 g/dL (11.0-16.0); LYMPH # 1.2 K/uL (1.0-4.3); LYMPH % 16.2 % (20.0-40.0); MEAN CELL VOLUME 94.5 fL (81.0-99.0); MEAN CORPUSCULAR HEMOGLOBIN 32.4 pg (27.0-31.0); MEAN CORPUSCULAR HGB CONC 34.3 g/dL (33.0-37.0); MEAN PLATELET VOLUME 7.7 fL (7.2-11.7); MONO # 0.7 K/uL (0.0-0.8); MONO % 9.4 % (0.0-10.0); NEUT # 5.4 K/uL (1.8-7.0); NEUT % 72.6 % (50.0-75.0); NRBC % 0.1 % (0.0-2.0); RBC 3.14 Mil/uL (3.80-5.20); RED CELL DISTRIBUTION WIDTH 14.5 % (11.5-14.5); WHITE BLOOD COUNT 7.4 K/uL (4.8-10.8)
[2017-08-22 08:09] LABS: ALB/GLOB RATIO 1.2 (1.0-2.1); ALBUMIN 3.6 g/dL (3.5-5.0); ALT/SGPT 33 U/L (9-52); AST/SGOT 33 U/L (14-36); BLOOD UREA NITROGEN 10 mg/dL (7-17); CALCIUM 8.8 mg/dl (8.6-10.4); GFR AFRICAN-AMERICAN > 60; GFR NON-AFRICAN AMERICAN > 60
[2017-08-22] MEDS: (Novolin R) Insulin Human Regular 100 units/ml vial SC SCH ×3 (08:37→18:38)
--- NOTE | 2017-08-22 10:02 | CP.PCM.PN ---
Subjective - Date & Time of Evaluation Date of Evaluation: 08/22/17 Time of Evaluation: 10:01 - Subjective Subjective: PROGRESS NOTE FOR DR. NAGEL'S SERVICE Pt seen and examined at bedside today. Her pain is well controlled with currents meds. She is tolerating PO intake. Her major discomfort during the day is following PT; which is expected. No other acute complaints. No acute events as per nursing. She is waiting placement approval for [facility]. Objective - Vital Signs/Intake and Output Vital Signs (last 24 hours): Temp Pulse Resp BP Pulse Ox 98.9 F 71 20 149/65 97 08/22/17 08:36 08/22/17 08:36 08/22/17 08:36 08/22/17 08:36 08/22/17 08:36 Intake and Output: 08/22/17 08/22/17 06:59 18:59 Intake Total 100 Balance 100 - Medications Medications: Current Medications Acetaminophen (Tylenol 325mg Tab) 650 mg PO Q6 PRN PRN Reason: Pain, Mild (1-3) Last Admin: 08/21/17 14:09 Dose: 650 mg Amlodipine Besylate (Norvasc) 5 mg PO DAILY [facility] Last Admin: 08/21/17 10:44 Dose: 5 mg Docusate Sodium (Colace) 100 mg PO BID [facility] Last Admin: 08/21/17 17:58 Dose: 100 mg Enoxaparin Sodium (Lovenox) 40 mg SC DAILY [facility] Last Admin: 08/21/17 10:45 Dose: 40 mg Escitalopram Oxalate (Lexapro) 5 mg PO DAILY [facility] Last Admin: 08/21/17 10:44 Dose: 5 mg Ferrous Gluconate (Fergon) 324 mg PO DAILY [facility] Last Admin: 08/21/17 10:44 Dose: 324 mg Insulin Human Regular (Novolin R) 0 unit SC ACHS [facility] PRN Reason: Protocol Last Admin: 08/22/17 08:37 Dose: 2 units Lidocaine (Lidoderm) 1 ea TD Q24H [facility] Last Admin: 08/21/17 17:35 Dose: 1 ea - Labs Labs: 08/22/17 07:00 08/22/17 07:00 PT 11.2 SECONDS (9.7-12.2) 08/13/17 21:46 INR 1.0 08/13/17 21:46 APTT 28 SECONDS (21-34) 08/13/17 21:46 - Constitutional Appears: No Acute Distress - Head Exam Head Exam: ATRAUMATIC, NORMOCEPHALIC - Eye Exam Eye Exam: EOMI, Normal appearance - ENT Exam ENT Exam: Mucous Membranes Moist - Respiratory Exam Respiratory Exam: Clear to Ausculation Bilateral, NORMAL BREATHING PATTERN - Cardiovascular Exam Cardiovascular Exam: REGULAR RHYTHM, +S1, +S2 - Extremities Exam Extremities Exam: absent: Calf Tenderness, Pedal Edema Additional comments: left hip- dressing c/d/i - Neurological Exam Neurological Exam: Alert, Awake, Oriented x3 - Psychiatric Exam Psychiatric exam: Normal Affect, Normal Mood - Skin Skin Exam: Dry, Warm Assessment and Plan - Assessment and Plan (Free Text) Plan: Fracture of neck of left femur -s/p Left hip open reduction and internal fixation POD #8 (surgery on 08/14/17) -XRAY and CT imaging confirms fracture of the neck of the left femur. Some degenerative changes noted. Refer to complete report. -CXR- Biapical pleural thickening with upper lobe granulomatous changes. Diffuse interstitial markings. Refer to complete report. -EKG- sinus rhythm, pr prolongation, questionable bundle branch changes. -Orthopedic Surgeon Dr. Frederick Chadwick consulted- Patient with no otherwise known cardiac history except HTN and DM. Deemed medically clear by covering - attending physician after speaking with patient's primary medical physician. s/p left hip pinning ortho stable VTE proph d/c planning f/u in office 7-10 days call for appointment [phone] d/w Dr. Mack=Farrukh, agrees with above -Percocet 5/325 1 tab PO Q4 hours prn pain (2 tabs prn severe pain) -Incentive spirometer -PT/OT eval Acute blood loss anemia -Hgb 9.7 today -Continue Ferrous Gluconate 325mg daily Right knee pain -Lidoderm patch daily Urinary Tract Infection -UA + Leukocyte esterase, +WBCs -Urine culture growing <10,000 CFU -Continue Rocephin 1 gm daily (completed 5 days, will discontinue) HTN Norvasc 5 mg PO daily Appropriate pain control Monitor vitals Diabetes mellitus Accuchecks, ISS Last Hgb A1c was 6.7 per primary Hold home metformin dose Hypokalemia -Potassium 3.4 today -Continue to monitor and replete as needed Vitamin D deficiency -Patient to take 2000 IU of Vit D daily otc Anxiety/Depression -Lexapro 5mg PO daily GI/DVT Prophylactic measure GI prophylaxis not indicated Lovenox 40mg SC daily DISPO: Patient is awaiting transport to [facility] for subacute rehab. Patient to follow up with Dr Frederick chadwick in the office within 7-10 days phone number is ([phone]). Discharge orders entered. Case discussed with Dr Nagel All medical management as per Dr. Robe Greene D.O.
[2017-08-22] MEDS: Enoxaparin 40 mg Syringe SC SCH (10:06)
[2017-08-22 15:55] VITALS: BP 112/68; PULSE 67; RESP 18; TEMP 98; O2SAT 96
[2017-08-22] MEDS: Lidocaine 5% Patch TD SCH (18:42)
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
== END 2017-08-22 19:01 | DRG 481 ==
LOC: C.ER 20:03 → C.9E 21:43 → C.6T 22:57
PROVIDERS: ADMIT Internal Medicine Pulmonary Disease; ATTEND Internal Medicine Pulmonary Disease
PROC: 0QS704Z Reposition Left Upper Femur with Internal Fixation Device, Open Approach (ICD-10-PCS; principal; 2017-08-14 15:45)
DX: S72.012A Unspecified intracapsular fracture of left femur, initial encounter for closed fracture (principal); N39.0 Urinary tract infection, site not specified; D62 Acute posthemorrhagic anemia; W18.39XA Other fall on same level, initial encounter; Y92.89 Other specified places as the place of occurrence of the external cause; F41.9 Anxiety disorder, unspecified; F32.9 Major depressive disorder, single episode, unspecified; I10 Essential (primary) hypertension; E55.9 Vitamin D deficiency, unspecified; E87.6 Hypokalemia; E11.9 Type 2 diabetes mellitus without complications; Z79.84 Long term (current) use of oral hypoglycemic drugs; M19.90 Unspecified osteoarthritis, unspecified site; R50.82 Postprocedural fever